=== PATIENT | female | born 1990 | race Caucasian/White ===

== ENCOUNTER 2019-01-07 07:14 | Emergency (ER) | payer OTHER ==
[2019-01-07 07:22] VITALS: BP 123/77
[2019-01-07] MEDS ORDERED: ACETAMINOPHEN 325 MG TAB PO ONE (07:26)
[2019-01-07] MEDS ORDERED: IBUPROFEN 600 MG TAB PO ONE ×2 (07:34→07:35)
--- NOTE | 2019-01-07 07:47 | EDPHY ---
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 Onset of a dry cough yesterday, followed by fever and chills throughout the night. This morning she awoke with a moderate sore throat and persistent cough, associated with myalgias. Recently treated for pneumonia. No flu vaccination this year. No headache or vomiting. History of lupus, previously on steroids, but did not tolerate steroids well. Currently on no medications and lupus symptoms are controlled. Also has a CHIEF LOAD DISPATCHER shunt for pseudotumor cerebri. No prior shunt malfunction and no headache or vomiting. REVIEW OF SYSTEMS: complete 10 point ROS reviewed and is negative except for the noted elements in the HPI - Personal History LMP (Females 10-55): 15-21 Days Ago Current Tetanus/Diphtheria Vaccine: No - Medical/Surgical History Hx Asthma: No Hx Chronic Respiratory Disease: No Hx Diabetes: No Hx Cardiac Disease: No Hx Renal Disease: No Hx Cirrhosis: No Hx Alcoholism: No Other PMH: Lupus, CHIEF LOAD DISPATCHER shunt for pseudotumor cerebri - Social History Smoking Status: Former smoker Alcohol Use: Sober Drug Use: None Additional Social History: Recently moved to [place] from [place] - Physical Exam Exam: General Appearance: Alert, pleasant, nontoxic-appearing Eyes: Pupils equal and round, no conjunctival pallor or injection ENT, Mouth: Pharyngeal erythema, Mucous membranes moist Neck: Normal inspection, supple, shotty adenopathy Respiratory: Lungs are clear to auscultation Cardiovascular: Regular rate and rhythm Gastrointestinal: Abdomen is soft and nontender Neurological: A&O, nonfocal, normal gait Skin: Warm and dry Extremities: Normal inspection Psychiatric: Mood and affect normal Constitutional: Initial Vital Signs Temperature (C) 37.6 C 01/07/19 07:17 Heart Rate 92 01/07/19 07:17 Respiratory Rate 18 01/07/19 07:17 Blood Pressure 123/77 H 01/07/19 07:17 O2 Sat (%) 95 01/07/19 07:17 O2 Delivery Mode Room Air Allergies/Adverse Reactions: No Known Allergies Allergy (Unverified 01/07/19 07:22) Home Medications: Medication Instructions Recorded Azithromycin [Zithromax] 250 mg PO DAILY #6 tab 02/22/19 Benzonatate [Tessalon Pearles (RX)] 100 mg PO TID PRN #15 cap 01/07/19 Medical Decision Making - Diagnostics Imaging Results: Imaging Impressions Chest X-Ray 01/07/19 07:42 Impression: Chest negative for acute abnormality. Query mild airways disease. Chest x-ray independently reviewed by me: ANGELINA ED Course/Re-evaluation: This patient presents with upper respiratory symptoms. She is well-appearing and tolerating oral fluids well. Chest x-ray is unremarkable. However, she is apparently prone to pneumonia and requests antibiotics. Zithromax prescribed. Warning signs discussed. Differential Diagnosis: Differential diagnosis includes but is not limited to pneumonia, otitis media, peritonsillar abscess, retropharyngeal abscess, meningitis. - Data Points Laboratory Results: 01/07/19 01/07/19 Unknown 07:30 Nasal Influenza A PCR NEGATIVE FOR FLU A (NEGATIVE) Nasal Influenza B PCR NEGATIVE FOR FLU B (NEGATIVE) Group A Strep Screen NEGATIVE (NEGATIVE) Group A Strep DNA NEGATIVE (NEGATIVE) Medications Given: Discontinued Medications Acetaminophen (Tylenol) 650 mg PO EDNOW ONE Stop: 01/07/19 07:27 Last Admin: 01/07/19 07:39 Dose: Not Given Dexamethasone (Decadron) 10 mg PO EDNOW ONE Stop: 01/07/19 08:05 Last Admin: 01/07/19 08:08 Dose: 10 mg Ibuprofen (Motrin) 600 mg PO EDNOW ONE Stop: 01/07/19 07:36 Last Admin: 01/07/19 07:36 Dose: 600 mg Departure - Departure Disposition: Home, Routine, Self-Care Clinical Impression: Acute upper respiratory infection Condition: Good Instructions: Upper Respiratory Infection (ED) Additional Instructions: Ibuprofen 600 mg 3 times daily while the fever persists. Drink plenty of fluids. We will call you if your influenza test is positive. Return for worsening symptoms or any concerns. Make an appointment to establish care with a primary physician. Referrals: Esther Cordero MD [[facility] [place]] - As per Instructions (Call to make an appointment.) Prescriptions: Azithromycin [Zithromax] 250 mg PO DAILY #6 tab Benzonatate [Tessalon Pearles (RX)] 100 mg PO TID PRN #15 cap PRN Reason: cough
[2019-01-07] MEDS ORDERED: DEXAMETHASONE 4 MG TAB PO ONE (08:04)
== END 2019-01-07 08:12 | disposition home or self-care (01) ==
DX: J22 Unspecified acute lower respiratory infection (principal); Z87.891 Personal history of nicotine dependence; Z98.2 Presence of cerebrospinal fluid drainage device

== ENCOUNTER 2019-02-06 20:02 | Emergency (ER) | payer OTHER ==
[2019-02-06] MEDS ORDERED: KETOROLAC 15 MG/1 ML SDV IVP ONE (20:47)
[2019-02-06] MEDS ORDERED: ACETAMINOPHEN 500 MG TAB PO ONE (20:47)
[2019-02-06] MEDS ORDERED: DIAZEPAM 5 MG/ML 1 ML SYR IVP ONE (20:47)
--- NOTE | 2019-02-06 22:19 | EDPHY ---
H & P Stated Complaint: ACUTE ON CHRONIC LOWER BACK PAIN Time Seen by Provider: 02/06/19 20:28 HPI/ROS: Chief complaint: Low back pain History of present illness: This is a 28-year-old female who presents to the emergency department for low back pain. Patient reports a long history of chronic back pain. She states that it intermittently flares. She states she was bending over today when she felt something pull in her back. Since then she has had increasing pain making it difficult to ambulate. The pain radiates across the low back. However it does not radiate elsewhere. There is no associated signs or symptoms including no paresthesias or saddle anesthesia, no weakness or paralysis, no bowel or bladder dysfunction. There was no direct trauma recently to her back. No fever or cold symptoms. No urinary symptoms. No other complaints at this time. 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 Eyes: Pupils equal and round no injection. Respiratory: Chest is non tender, lungs are clear to auscultation. Cardiac: regular rate and rhythm Gastrointestinal: Abdomen is soft and non tender, no masses, bowel sounds normal. Musculoskeletal: Neck is supple and non tender. Thoracic spine is nontender to palpation. There is diffuse tenderness across the low back both along the lumbar spine and the paraspinal muscles bilaterally. I am able to reproduce pain. She is ambulated plating on her own. Skin: No rashes or lesions. Neurological: Alert and oriented x4. Strength and sensation intact and symmetrical. Straight leg raise test is negative bilaterally. Patellar reflexes 2+ bilaterally, Achilles reflexes 1+ bilaterally. Constitutional: Initial Vital Signs Temperature (C) 36.9 C 02/06/19 20:05 Heart Rate 80 02/06/19 20:05 Respiratory Rate 16 02/06/19 20:05 Blood Pressure 130/77 H 02/06/19 20:05 O2 Sat (%) 96 02/06/19 20:05 O2 Delivery Mode Room Air Allergies/Adverse Reactions: No Known Allergies Allergy (Verified 02/06/19 20:05) Home Medications: Medication Instructions Recorded Diazepam [Valium 2 MG (*)] 2 mg PO TID #15 tab 02/06/19 Medical Decision Making ED Course/Re-evaluation: Patient seen under the supervision of my secondary supervising physician Dr. Ira Rosen. Patient presents for low back pain. She has a history of chronic back pain and appears to have exacerbated it while bending over today. There was no direct trauma. No red flag risk factors to suggest severe causes of back pain that need further investigation. She is symptomatically treated with improvement in symptoms. She will be discharged home. She is new to [facility] and does not have a primary care doctor, I have provided referral information. Home care is discussed. Strict return precautions were given. The patient voiced understanding and agreement with plan. - Data Points Medications Given: Discontinued Medications Acetaminophen (Tylenol) 1,000 mg PO EDNOW ONE Stop: 02/06/19 20:48 Last Admin: 02/06/19 21:13 Dose: 1,000 mg Diazepam (Valium) 5 mg IVP EDNOW ONE Stop: 02/06/19 20:48 Last Admin: 02/06/19 21:13 Dose: 5 mg Ketorolac Tromethamine (Toradol) 15 mg IVP EDNOW ONE Stop: 02/06/19 20:48 Last Admin: 02/06/19 21:13 Dose: 15 mg Departure - Departure Disposition: Home, Routine, Self-Care Clinical Impression: Back pain Qualifiers: Back pain location: low back pain Chronicity: acute Back pain laterality: bilateral Sciatica presence: without sciatica Qualified Code(s): M54.5 - Low back pain Condition: Good Instructions: Back Pain (ED) Additional Instructions: Follow-up with a primary care doctor for continued evaluation and care Use ibuprofen 600 mg 3 times a day for the next 2-3 days for pain control In addition take Tylenol 1000 mg 3 times a day for the next 2-3 days for pain control You have been prescribed Valium as a muscle relaxant, it is sedating, use it sparingly If symptoms worsen or new symptoms develop return to the emergency room for recheck Referrals: NONE *PRIMARY CARE P,. [Primary Care Provider] - As per Instructions [facility],. [Clinic] - As per Instructions Amanda Grullon MD [Medical Doctor] - As per Instructions Prescriptions: Diazepam [Valium 2 MG (*)] 2 mg PO TID #15 tab
[2019-02-06 22:29] VITALS: BP 112/74
== END 2019-02-06 22:27 | disposition home or self-care (01) ==
DX: M54.5 Low back pain (principal); G89.29 Other chronic pain; Z98.2 Presence of cerebrospinal fluid drainage device; Z87.891 Personal history of nicotine dependence
CPT/HCPCS: 96374; J1885; J3360

== ENCOUNTER 2019-02-07 07:09 | Emergency (ER) | payer SELFPAY ==
[2019-02-07] MEDS ORDERED: predniSONE 20 MG TAB PO ONE (07:39)
--- NOTE | 2019-02-07 07:39 | EDPHY ---
H & P Stated Complaint: back pain seen last night also/rx valium didn't fill rx doesn; t like it Time Seen by Provider: 02/07/19 07:30 HPI/ROS: CHIEF COMPLAINT: Low back pain HISTORY OF PRESENT ILLNESS: The patient is a 28-year-old overweight female with a history of chronic low back pain. 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 It briefly radiated down her left leg but since has only been hurting in her low back. She reports history of L4-L5 disc bulging. She has received spinal injections in the past but states that over the last several months her pain is controlled with ibuprofen alone. She states that she recently moved to town and does not have a doctor here yet. She was seen here in the ER yesterday and improved with Valium and Toradol and Tylenol. She states that her back is become more stiff and painful overnight and she does not like the way Valium makes her feel. No fever. No bowel or bladder abnormalities. No weakness or numbness. Severity: Severe Modifying factors: See above REVIEW OF SYSTEMS: Constitutional: denies: chills, fever, recent illness, recent injury EENTM: denies: blurred vision, double vision, nose congestion Respiratory: denies: cough, shortness of breath Cardiac: denies: chest pain, irregular heart rate, lightheadedness, palpitations Gastrointestinal/Abdominal: denies: abdominal pain, diarrhea, nausea, vomiting, blood streaked stools Genitourinary: denies: dysuria, frequency, hematuria, pain Musculoskeletal: See HPI Skin: denies: lesions, rash, jaundice, bruising Neurological: denies: headache, numbness, paresthesia, tingling, dizziness, weakness Hematologic/Lymphatic: denies: blood clots, easy bleeding, easy bruising Immunologic/allergic: denies: HIV/AIDS, transplant 10 systems reviewed and negative except as noted EXAM: GENERAL: Well-appearing, well-nourished and in no acute distress. HEAD: Atraumatic, normocephalic. EYES: Pupils equal round and reactive to light, extraocular movements intact, sclera anicteric, conjunctiva are normal. ENT: TMs normal, nares patent, oropharynx clear without exudates. Moist mucous membranes. NECK: Normal range of motion, supple without lymphadenopathy or JVD. LUNGS: Breath sounds clear to auscultation bilaterally and equal. No wheezes rales or rhonchi. HEART: Regular rate and rhythm without murmurs, rubs or gallops. ABDOMEN: Soft, nontender, normoactive bowel sounds. No guarding, no rebound. No masses appreciated. BACK: No bony tenderness, No CVA tenderness, no spinal tenderness, step-offs or deformities EXTREMITIES: Normal range of motion, no pitting or edema. No clubbing or cyanosis. NEUROLOGICAL: Cranial nerves II through XII grossly intact. Normal speech, normal painful gait. 5/5 strength, normal movement in all extremities, normal sensation, normal reflexes PSYCH: Normal mood, normal affect. SKIN: Warm, dry, normal turgor, no visible rashes or lesions. 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, CHRONIC BACK PAIN - Family History Significant Family History: No pertinent family hx - Social History Smoking Status: Former smoker Alcohol Use: None Constitutional: Initial Vital Signs Temperature (C) 36.7 C 02/07/19 07:14 Heart Rate 69 02/07/19 07:14 Respiratory Rate 18 02/07/19 07:14 Blood Pressure 138/99 H 02/07/19 07:14 O2 Sat (%) 97 02/07/19 07:14 O2 Delivery Mode Room Air Allergies/Adverse Reactions: No Known Allergies Allergy (Verified 02/07/19 07:14) Home Medications: Medication Instructions Recorded Diazepam [Valium 2 MG (*)] 2 mg PO TID #15 tab 02/06/19 Metaxalone [Skelaxin 800 mg (*)] 800 mg PO TID PRN #12 tab 02/07/19 predniSONE 60 mg PO DAILY #15 tab 02/07/19 Medical Decision Making ED Course/Re-evaluation: The patient has lumbar pain. No bony tenderness or deformities. Initially she had some sciatica type symptoms but does not currently. No neurologic deficits. She is ambulatory and has normal strength. We discussed x-rays although they would likely be of little benefit in this situation because she did not have a traumatic injury. She RD has known history of disc disease. I will refer her to a spinal specialist here in [place]. We also discussed alternative medications. She is aware of our no narcotic policy. I will start on a burst of prednisone and Skelaxin. Encouraged rest. We discussed indications for returning to the ER. Differential Diagnosis: Partial list of the Differential diagnosis considered include but were not limited to; low back strain, sciatica and although unlikely based on the history and physical exam, I also considered fracture, infection, hematoma, cauda equina. I discussed these differential diagnoses and the plan with the patient as well as the usual and expected course. The patient understands that the diagnosis is provisional and that in medicine we are not always correct and that further workup is often warranted. Usual and customary warnings were given. All of the patient's questions were answered. The patient was instructed to return to the emergency department should the symptoms at all worsen or return, otherwise to followup with the physician as we discussed. - Data Points Medications Given: Discontinued Medications Prednisone (Prednisone) 60 mg PO EDNOW ONE Stop: 02/07/19 07:40 Last Admin: 02/07/19 07:43 Dose: 60 mg Departure - Departure Disposition: Home, Routine, Self-Care Clinical Impression: Low back pain Qualifiers: Chronicity: unspecified Back pain laterality: unspecified Sciatica presence: with sciatica Sciatica laterality: sciatica of left side Qualified Code(s): M54.42 - Lumbago with sciatica, left side Condition: Fair Instructions: Acute Low Back Pain (ED) Referrals: NONE *PRIMARY CARE P,. [Primary Care Provider] - As per Instructions Nathan Dawn MD [Medical Doctor] - 5-7 days, call for appt. Prescriptions: Metaxalone [Skelaxin 800 mg (*)] 800 mg PO TID PRN #12 tab PRN Reason: Spasms predniSONE 60 mg PO DAILY #15 tab
[2019-02-07 07:51] VITALS: BP 127/89
== END 2019-02-07 07:51 | disposition home or self-care (01) ==
DX: M54.42 Lumbago with sciatica, left side (principal)
CPT/HCPCS: J7512

== ENCOUNTER 2019-02-07 08:56 | Emergency (ER) | payer OTHER ==
[2019-02-07 09:06] VITALS: BP 114/80
--- NOTE | 2019-02-07 09:29 | EDPHY ---
H & P Time Seen by Provider: 02/07/19 08:57 HPI/ROS: CHIEF COMPLAINT: Low back pain HISTORY OF PRESENT ILLNESS: Patient comes to this emergency department after being discharged from [facility] emergency department about 1 hr ago. She was also seen at that same department last night for this injury. Seem she strained her back at work yesterday by body movement, no direct trauma or fall. Seated evaluated twice prior with the initial exam discharge with Valium. The exam this morning she was discharged with steroids and Skelaxin for symptom control. She states today she is confused about what she is supposed to do. She was referred to [facility] but they felt like she should be seen in the emergency department and she came to this ED for evaluation. She was also referred to Neurosurgery this morning. No new symptoms, patient states she can' t walk. No loss of bowel or bladder. Some sciatic type pain down the leg on the left but no foot drop or other muscle weakness. REVIEW OF SYSTEMS: Negative except per HPI. General Appearance: Alert, no distress. Eyes: Pupils equal and round no icterus Respiratory: No respiratory distress Neurological: Awake, alert, no focal deficits. Skin: Warm and dry, no rashes. Musculoskeletal: Neck is supple nontender. Extremities are symmetrical, full range of motion, no edema. Normal strength and sensation to lower extremities. Normal gait, no foot drop. Psychiatric: Patient is oriented X 3, there is no agitation. 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 Social history: Previous smoker. Smoking Status: Former smoker Constitutional: Initial Vital Signs Temperature (C) 36.7 C 02/07/19 09:02 Heart Rate 70 02/07/19 09:02 Respiratory Rate 12 02/07/19 09:02 Blood Pressure 114/80 02/07/19 09:02 O2 Sat (%) 97 02/07/19 09:02 O2 Delivery Mode Room Air Allergies/Adverse Reactions: No Known Allergies Allergy (Verified 02/07/19 07:14) Home Medications: Medication Instructions Recorded Diazepam [Valium 2 MG (*)] 2 mg PO TID #15 tab 02/06/19 Metaxalone [Skelaxin 800 mg (*)] 800 mg PO TID PRN #12 tab 02/07/19 predniSONE 60 mg PO DAILY #15 tab 02/07/19 Medical Decision Making Differential Diagnosis: Patient with 3rd visit in less than 24 hr for low back pain from body motion at work yesterday. No evidence of neurologic deficit or symptom progression. No indication for imaging at this time. Reviewed her recent clinical course, medications, indications to return to the emergency department as well as follow -up in detail with patient. Given referral to Occupational Health. Understands follow-up and return precautions. Stable for discharge. Departure - Departure Disposition: Home, Routine, Self-Care Clinical Impression: Low back pain Qualifiers: Chronicity: unspecified Back pain laterality: unspecified Sciatica presence: with sciatica Sciatica laterality: sciatica of left side Qualified Code(s): M54.42 - Lumbago with sciatica, left side Condition: Fair Instructions: Low Back Strain (ED), Acute Low Back Pain (ED) Additional Instructions: Use ice as discussed. Continue with the prednisone and Skelaxin as prescribed this morning. Follow up with occupational health this week without fail. Return to the emergency department if he developed the symptoms that we reviewed including weakness, loss of bowel or bladder function. Referrals: NONE *PRIMARY CARE P,. [Primary Care Provider] - As per Instructions Carmen Rosenthal MD [Medical Doctor] - As per Instructions Stand Alone Forms: Work Comp Follow Up
== END 2019-02-07 09:34 | disposition home or self-care (01) ==
LOC: CED 08:56
DX: M54.42 Lumbago with sciatica, left side (principal); X50.0XXA Overexertion from strenuous movement or load, initial encounter; Y99.0 Civilian activity done for income or pay; Z87.39 Personal history of other diseases of the musculoskeletal system and connective tissue
CPT/HCPCS: 99282-ER